=== PATIENT | male | born 1940 | race Caucasian/White ===

== ENCOUNTER → 2016-12-23 | Outpatient (CLI) | payer OTHER ==
--- NOTE | 2016-12-23 11:46 | CT ---
Preoperative Makoplasty Unenhanced CT Imaging of the Right and Left Lower Extremities (Attention Knee s) Clinical History: 76-year-old male anticipating bilateral knee Makoplasty procedures to be performed on January 01, 2017 for osteoarthrosis. Technique: A multidetector unenhanced helical CT scan was obtained through each hemipelvis and then a t the level of the distal right and left femoral diaphyses through the proximal tibial diaphyses, and then at the level of each ankle. Imaging through the hips was reformatted at 2.50 mm increments, at the knees at 0.63 mm increments, and at the ankles at 2.50 mm increments. Images were evaluated in so ft tissue and bone windows, and parasagittal and paracoronal reconstructed images of each knee were o btained with data to be transmitted for Makoplasty surgical planning. The DFOV is 32 cm. A dose reduc tion protocol was used. Comparison Study: None available. Findings: UNENHANCED CT SCAN OF THE RIGHT LOWER EXTREMITY: At the level of the hip, there is a large right ingu inal hernia, which contains both omental fat and bowel. The prostate gland is enlarged, measuring 5.1 x 6.0 cm. There is some mild periarticular acetabular degenerative spurring. There is a subchondral geode seen both anteriorly and posteriorly in the right femoral head, and osseous hypertrophy of the greater trochanter. At the level of the right knee, there is severe medial femoral-tibial compartment narrowing with subchondral sclerosis. Degenerative osteophytes are seen in association with the medi al and lateral tibia and femur, and there are some degenerative pinnacling of the tibial spines. Post erior patellar degenerative osteophytes are seen. There is a large enthesophyte off the anteroinferio r patella, at the patellar tendon origin. There is no suprapatellar joint effusion. Vascular calcific ations are observed. The right ankle is notable for some mild degenerative change. There is a well-co rticated ossific density distal to the medial malleolus. UNENHANCED CT SCAN OF THE LEFT LOWER EXTREMITY: As on the contralateral side, there is a large left i nguinal hernia. This is not as big as on the contralateral side, and only contains omental fat. The u rinary bladder is incompletely-distended, which may account for its mildly thickened wall. The femora l head is well-seated within the acetabulum. There is some mild acetabular periarticular spurring. Th ere are also some degenerative osteophytes along the greater trochanter. At the level of the knee, th ere is severe medial femoral-tibial compartment narrowing with a vacuum phenomenon and subchondral sc lerosis. There are degenerative osteophytes associated with the medial and lateral distal femur and t he proximal tibia, and there is degenerative pinnacling of the tibial spines. There is some osseous h ypertrophy along the intercondylar notch. There is a well-corticated loose osteochondral body seen an teriorly. Posterior patellar degenerative spurs are seen. There is no suprapatellar joint effusion. T here are small enthesophytes seen anteriorly. Vascular calcifications are observed. A well-corticated ossific density is seen above the posteromedial distal femur. Imaging of the left ankle is age-appro priate, with some minor degenerative changes. Impression: 1. Preoperative Makoplasty procedural imaging in this patient with severe bilateral medial femoral-ti bial compartment osteoarthrosis. 2. Large bilateral inguinal hernias, with omental fat in each hernia, as well as some bowel in the ri ght hernia. 3. Prostatomegaly.
== END ==
LOC: FIMAGING 09:42
PROVIDERS: ATTEND Orthopaedic Surgery
DX: Z01.818 Encounter for other preprocedural examination (principal); M17.0 Bilateral primary osteoarthritis of knee; K40.90 Unilateral inguinal hernia, without obstruction or gangrene, not specified as recurrent; N40.0 Benign prostatic hyperplasia without lower urinary tract symptoms

== ENCOUNTER 2017-01-01 07:15 | Observation (INO) | payer OTHER ==
[2016-12-24 11:15] LABS: ABSOLUTE IMMATURE GRANULOCYTES 0.05 10^3/uL (0.00-0.10); ADD DIFF? NO; ADD MORPH? NO; ADD SCAN? NO; ATYPICAL LYMPHOCYTE FLAG 30 (0-99); FRAGMENT RBC FLAG 0 (0-99); HEMATOCRIT 49.6 % (40.0-51.0); HEMOGLOBIN 17.3 g/dL (13.7-17.5); LEFT SHIFT FLG 10 (0-99); LIPEMIA HEMOLYSIS FLAG 90 (0-99); MEAN CELL HEMOGLOBIN 33.9 pg (27.9-34.1); MEAN CELL HEMOGLOBIN CONCENTR. 34.9 g/dL (32.4-36.7); MEAN CELL VOLUME 97.3 fL (81.5-99.8); MEAN PLATELET VOLUME 9.9 fL (8.7-11.7); PLATELET CLUMPS FLAG 10 (0-99); PLATELET COUNT 250 10^3/uL (150-400); RED CELL DISTRIBUTION WIDTH 11.3 % (11.5-15.2)
[~2017-01-01 07:15] MED LIST: ACETAMINOPHEN 325 MG TAB PO ONE; CEFAZOLIN 2 GM/DEXTR 100 ML IV ONE; CHLORHEXIDINE GLUC HIBICLENS 118 ML BTL TP ONE; DEXAMETHASONE 4 MG/ML VIAL IVP ONE; FAMOTIDINE 20 MG TAB PO ONE; ROPI/epiNEPH/KETOROLAC JOINT COCKTAIL IU ONE; TRANEXAMIC ACID 3,000 MG in NS 50 ML IRR ONE
[2017-01-01] MEDS ORDERED: SKIN ADHESIVE (DERMABOND) 1 EACH TP ONE ×3 (07:33→08:06)
[2017-01-01] MEDS ORDERED: TRANEXAMIC ACID 3,000 MG/50 ML BAG IRR ONE (07:34)
[2017-01-01] MEDS ORDERED: VANCOMYCIN 1 GM VIAL IV ONE ×3 (07:34→08:06)
[2017-01-01] MEDS ORDERED: DEXAMETHASONE 4 MG/ML VIAL ONE (08:58)
[2017-01-01] MEDS ORDERED: ACETAMINOPHEN 325 MG TAB ONE (08:59)
[2017-01-01] MEDS ORDERED: FAMOTIDINE 20 MG TAB ONE (08:59)
[2017-01-01] MEDS ORDERED: CEFAZOLIN 2 GM/DEXTROSE/100 ML BAG IV ONE (08:59)
[2017-01-01] MEDS ORDERED: ROPI/epiNEPH/KETOROLAC JOINT COCKTAIL IU ONE (09:15)
[2017-01-01] MEDS ORDERED: LR 1,000 ML IV ONE (09:28)
[2017-01-01] MEDS ORDERED: LIDOCAINE 1% 5 ML SDV ID PRN (09:28)
[2017-01-01] MEDS ORDERED: MIDAZOLAM 2 MG/2 ML VIAL ONE (09:54)
[2017-01-01] MEDS ORDERED: PROPOFOL/EMULSION 500 MG/50 ML BOTTLE IV ONE (10:00)
[2017-01-01] MEDS ORDERED: LIDOCAINE 2% 100 MG/5 ML SYR IVP ONE (10:00)
[2017-01-01] MEDS ORDERED: fentaNYL 100 MCG/2 ML INJ ONE (10:00)
[2017-01-01] MEDS ORDERED: ROPIVACAINE HCL 150 MG/30 ML INJ ONE (10:14)
[2017-01-01] MEDS ORDERED: DIPHENOXYLATE/ATROPINE LOMOTIL 1 TAB PO PRN (10:24)
[2017-01-01] MEDS ORDERED: BISACODYL 10 MG SUPP PR PRN (10:24)
[2017-01-01] MEDS ORDERED: ONDANSETRON 4 MG/2 ML VIAL IVP PRN (10:24)
[2017-01-01] MEDS ORDERED: PHARMACY PAIN CONSULT 1 EA MISC PRN (10:24)
[2017-01-01] MEDS ORDERED: PROMETHAZINE HCL 25 MG/ML INJ IVP PRN (10:24)
[2017-01-01] MEDS ORDERED: POLYETHYLENE GLYCOL 3350 17 GM PKT PO PRN (10:24)
[2017-01-01] MEDS ORDERED: METOCLOPRAMIDE 10 MG/2 ML VIAL IVP PRN (10:24)
[2017-01-01] MEDS ORDERED: TEMAZEPAM 15 MG CAP PO PRN (10:24)
[2017-01-01] MEDS ORDERED: ONDANSETRON DISINTEGRATING 4 MG TAB PO PRN (10:24)
[2017-01-01] MEDS ORDERED: PROMETHAZINE HCL 25 MG SUPPR PR PRN (10:24)
[2017-01-01] MEDS ORDERED: MAGNESIUM HYDROXIDE 30 ML UDCUP PO PRN (10:24)
[2017-01-01] MEDS ORDERED: LACTULOSE 20 GM/30 ML UDCUP PO PRN (10:24)
[2017-01-01] MEDS ORDERED: CYCLOBENZAPRINE 10 MG TAB PO PRN (10:24)
[2017-01-01] MEDS ORDERED: diphenhydrAMINE 25 MG CAP PO PRN (10:24)
[2017-01-01] MEDS ORDERED: LR 1,000 ML IV SCH (10:30)
[2017-01-01] MEDS ORDERED: PROPOFOL 200 MG/20 ML VIAL ONE (11:23)
--- NOTE | 2017-01-01 12:35 | POSTOPPROG ---
Post Op Note Date of Operation: 01/01/17 Surgeon: Floridalma Dumont Clerical Assistant: Lidia Dumont PAc Anesthesiologist: Lovely Anesthesia: Spinal Pre-op Diagnosis: B knee djd Post-op Diagnosis: same Indication: Pain Procedure: B med PKA Findings: med OA Inf/Abcess present in the surg proc area at time of surgery?: No EBL: 50-100
[2017-01-01] MEDS: ACETAMINOPHEN 325 MG TAB PO SCH ×2 (15:36→18:45)
[2017-01-01] MEDS ORDERED: ceFAZolin 2 GM/DEXTROSE 100 ML IV SCH (18:00)
[2017-01-01] MEDS: oxyCODONE IR 5 MG TAB PO PRN (18:44)
[2017-01-01] MEDS: ceFAZolin 2 GM in D5W 100 ML IV SCH (18:44)
[2017-01-01] MEDS: FAMOTIDINE 20 MG TAB PO SCH (20:36)
[2017-01-01] MEDS: SENNOSIDES/DOCUSATE SODIUM TAB PO SCH (20:36)
[2017-01-01] MEDS: ASPIRIN 325 MG TAB PO SCH (20:42)
[2017-01-01] MEDS ORDERED: TRAVOPROST Z 0.004% LEFTEYE SCH (21:00)
[2017-01-02] MEDS: oxyCODONE IR 5 MG TAB PO PRN ×3 (00:26→09:22)
[2017-01-02] MEDS: ACETAMINOPHEN 325 MG TAB PO SCH ×2 (00:29→05:09)
[2017-01-02] MEDS: ceFAZolin 2 GM in D5W 100 ML IV SCH (03:05)
[2017-01-02 05:17] VITALS: RESP 20; TEMP 97.6
[2017-01-02 05:45] LABS: HEMATOCRIT 45.3 % (40.0-51.0); HEMOGLOBIN 15.6 g/dL (13.7-17.5)
--- NOTE | 2017-01-02 09:05 | SOAPPROG ---
SOAP Progress Note Assessment/Plan: Assessment: Patient is doing well POD 1 s/p bilateral medial knee arthroplasty 1.Pain management: pain is well controlled on oral pain meds 2.Anemia: level is expected initially postop. Asymptomatic. Cont to monitor for symptoms 3.VTE ppx: recommend aspirin 325mg daily. Cont MAHAMED [place] and SCD 4. d/c planning: d/c to home today pending release from PT. Plan: 01/02/17 09:04 Subjective: Aniket is doing well today, denies SOB, chest pain and N/V Objective: Vital Signs Temp Pulse Resp BP Pulse Ox 36.4 C 69 20 149/93 H 96 01/02/17 05:16 01/02/17 05:16 01/02/17 05:16 01/02/17 05:16 01/02/17 07:45 Laboratory Results 01/02/17 04:28 01/01/17 01/02/17 01/03/17 05:59 05:59 05:59 Intake Total 2680 Output Total 1000 Balance 1680 BLE: incision dressing is clean and dry, NVI, +pf/df ICD10 Worksheet Patient Problems: Problems Problem Status Onset Primary localized osteoarthritis of left knee Acute Primary localized osteoarthritis of right knee Acute
[2017-01-02] MEDS: SENNOSIDES/DOCUSATE SODIUM TAB PO SCH (09:22)
[2017-01-02] MEDS: ASPIRIN 325 MG TAB PO SCH (09:22)
[2017-01-02] MEDS: FAMOTIDINE 20 MG TAB PO SCH (09:24)
[2017-01-02 10:27] VITALS: BP 152/80; PULSE 82; O2SAT 99
--- NOTE | 2017-01-02 13:37 | GOP ---
[f rep st] OPERATIVE REPORT DATE OF OPERATION: 01/01/2017 SURGEON: Jess Dumont MD LAND CLEARER: HUA Stroud ANESTHESIA: Spinal. PREOPERATIVE DIAGNOSIS: Bilateral knee osteoarthritis. POSTOPERATIVE DIAGNOSIS: Bilateral knee osteoarthritis. PROCEDURE PERFORMED: 1. Left medial compartment partial knee replacement with computer navigation and robotic assist. 2. Right partial knee replacement with computer navigation and robotic assist. FINDINGS/PATHOLOGY: Severe medial compartment bilateral osteoarthritis. ESTIMATED BLOOD LOSS: 50 cc. INDICATIONS: This is a 76-year-old male, with progressive pain of the left knee unresponsive to conservative care. Risks and benefits of surgical intervention were explained in detail. DESCRIPTION OF PROCEDURE: The patient was brought to the operating room and placed on the table in supine position. Spinal anesthesia was induced without difficulty. A pneumatic tourniquet was applied about the left proximal thigh and the leg was prepped and draped in sterile fashion. Attention was turned first to the distal aspect of the left femur. At 3 cm proximal to the lateral rise of the femur, 2 percutaneous half pins were placed for fixation of the femoral array. In a similar fashion, 2 pins were placed anterolateral on the tibia for fixation of the tibial array. External land marking and registration of the hip center was performed without difficulty. After exsanguination by elevation, the tourniquet was inflated to 275 mmHg. Incision was made from the tibial tuberosity to the superior pole of the patella. Dissection was carried out through the subcutaneous tissue to the deep fascia using Bovie electrocautery for hemostasis. Medial parapatellar arthrotomy was carried out to the superior pole of the patella. The medial collateral ligament was elevated and the infrapatellar fat pad was resected. Internal femoral and tibial registration was carried out without difficulty and the femoral and tibial checkpoints were placed and verified for accuracy. Attention was turned to the femur. The foot print for the size 4 femoral component was cut with the 6 mm bur using the [employer] robotic system and verified for accuracy against the CT based plan. The hole was cut for the femoral post. In a similar fashion, the 6 mm bur was used to cut the foot print for the size 5 tibial component using the [employer] system and verified for accuracy against the CT based plan. Attention was turned to the posterior aspect of the knee and remnants of the medial meniscus were excised. The posterior capsule was injected with ropivacaine, epinephrine and Toradol. Trial reduction was carried out and there was excellent range of motion, alignment and stability using the size 4 femoral component and the size 5 tibial component, 5 x 9 polyethylene. All trials were then removed. The joint was thoroughly irrigated and carefully dried. One package of cement and 1 gram of vancomycin were mixed in the vacuum mixer and placed on the fixation surfaces of all components. The components were implanted and all excess cement was thoroughly removed. Implant placement was verified against the CT view plan and found to be excellent. The tourniquet was deflated and all bleeders were coagulated. The wound was thoroughly irrigated and closed using interrupted sutures of 2-0 Vicryl for the joint capsule. The subcu was closed with 3-0 Vicryl and the skin with 4-0 Monocryl. Dermabond and Steri-Strips were applied, followed by a compressive dressing. The patient was then moved from the operating room to the recovery room in good condition, having tolerated the procedure well. CASE CLASSIFICATION: Clean. /[id number]/MODL MTDD
--- NOTE | 2017-01-02 14:27 | GDS ---
[f rep st] DISCHARGE SUMMARY ADMISSION DIAGNOSIS: Bilateral knee osteoarthritis. DISCHARGE DIAGNOSIS: Bilateral knee osteoarthritis. PROCEDURE: Bilateral medial compartment partial knee arthroplasty, robot assisted. VTE PROPHYLAXIS: Aspirin recommended for 3 weeks daily. BRIEF DESCRIPTION OF HOSPITAL STAY: Patient was admitted for an elective joint arthroplasty. The p atient tolerated the procedure well and has passed physical therapy. The patient was given appropri ate antibiotic prophylaxis and venous thromboembolism prophylaxis. The patient's pain was well cont rolled on oral pain medication, patient was holding down food, and had urinated. Decision was made to discharge the patient. The patient was given post-operative prescriptions pre-operatively. PLAN: Please follow up as scheduled at Dr. Dumont's office at [facility] 9 at 11:10 a.m. /[id number]/MODL
== END 2017-01-02 10:30 | disposition home or self-care (01) ==
LOC: INTOOBSV 08:11 → F3N 08:11
PROVIDERS: ADMIT Orthopaedic Surgery; ATTEND Orthopaedic Surgery
PROC: 0SRD0KZ Replacement of Left Knee Joint with Nonautologous Tissue Substitute, Open Approach (ICD-10-PCS; principal; 2017-01-01 10:15)
PROC: 0SRC0JZ Replacement of Right Knee Joint with Synthetic Substitute, Open Approach (ICD-10-PCS; principal; 2017-01-01 10:15)
PROC: 8E0Y0CZ Robotic Assisted Procedure of Lower Extremity, Open Approach (ICD-10-PCS; principal; 2017-01-01 10:15)
DX: M17.0 Bilateral primary osteoarthritis of knee (principal); D62 Acute posthemorrhagic anemia
CPT/HCPCS: 27446; 73560; 97116; 97161; 97165; C1713; C1776; G0378; G8978; G8979; G8981; G8987; G8988; G8989; J0171; J0690; J1100; J1885; J2001; J2250; J2704; J2795; J3010; J3370